=== PATIENT | male | born 1940 | race Two or more races ===

== ENCOUNTER 2024-03-16 06:25 | Emergency (ER) | payer OTHER, MEDICAID ==
[~2024-03-16] VITALS: Ht 185.4 cm; Wt 70.3 kg
[2024-03-16 09:18] VITALS: BP 129/61; PULSE 66; RESP 18; TEMP 96.7; O2SAT 97
[2024-03-16 09:50] LABS: Urine Bacteria None Seen /hpf (None Seen)
[2024-03-16 10:05] LABS: Urine Blood 1+ /uL (Negative); Urine Clarity Clear (Clear); Urine Color Yellow (Yellow); Urine Mucus FEW (None Seen); Urine Protein, UAD Negative (Negative); Urine Urobilinogen Normal (Negative); Urine WBC 2 /hpf (0 - 3)
[2024-03-16] MEDS ORDERED: TAMS-35 PO (11:45)
[2024-03-16] MEDS ORDERED: TAMSULOSIN HYDROCHLORIDE 0.4 MG CAP PO SCH (18:00)
== END 2024-03-16 11:53 | disposition home or self-care (01) ==
LOC: ER 06:25
DX: N40.1 Benign prostatic hyperplasia with lower urinary tract symptoms (principal); R35.0 Frequency of micturition; R30.0 Dysuria; R31.9 Hematuria, unspecified
CPT/HCPCS: 74176; 81001